=== PATIENT | female | born 1990 | race American Indian/Alaskan Native ===

== ENCOUNTER 2023-10-26 17:56 | Emergency (ER) | payer BC, OTHER ==
[~2023-10-26] VITALS: Ht 162.6 cm; Wt 72.7 kg
[2023-10-26 18:03] VITALS: TEMP 98
[2023-10-26] MEDS ORDERED: Ketorolac 60 MG/2 ML VIAL IM ONE (18:30)
[2023-10-26] MEDS ORDERED: oxyCODONE/Acetaminophen 5-325 MG TAB PO ONE (18:30)
[2023-10-26] MEDS ORDERED: NS 1,000 ML IV ONE (19:15)
[2023-10-26 19:17] LABS: BASO % 0.5 % (0.0-2.0); EOS # 0.1 K/mm3 (0.0-0.7); EOS % 1.7 % (0.0-4.0); GRAN # 2.2 K/mm3 (1.4-6.5); HEMATOCRIT 39.1 % (37.0-47.0); HEMOGLOBIN 13.6 g/dl (12.5-16.0); LYMPH # 1.4 K/mm3 (1.2-3.4); LYMPH % 33.7 % (20.0-51.0); MEAN CELL VOLUME 88 fl (80.0-100.0); MEAN CORPUSCULAR HEMOGLOBIN 31 pg (27-31); MEAN CORPUSCULAR HGB CONC 35 g/dl (33.0-37.0); MEAN PLATELET VOLUME 10.5 fl (7.4-10.4); MONO # 0.4 K/mm3 (0.1-0.6); MONO % 8.9 % (1.7-9.3); PLATELET COUNT 206 K/mm3 (130-400); RED BLOOD COUNT 4.46 M/mm3 (4.10-5.30)
[2023-10-26 19:22] LABS: COLLECTION METHOD CLEAN CATCH
[2023-10-26 19:39] LABS: PH 8.5 (5.0-8.5); SQUAMOUS EPITHELIAL 0-2 /hpf (0-10); URINE APPEARANCE Clear (CLEAR/HAZY); URINE BLOOD Negative (NEGATIVE); URINE COLOR Yellow (YELLOW); URINE GLUCOSE Negative (NEGATIVE); URINE KETONE Negative (NEGATIVE); URINE NITRATE Negative (NEGATIVE); URINE PROTEIN(semi-quant) Negative (NEGATIVE); URINE RBC None Seen /hpf (0-2); URINE UROBILINOGEN 0.2 E.U/dL (0.2-1.0)
[2023-10-26 19:55] LABS: ALBUMIN 3.9 gm/dL (3.5-5.0); BILIRUBIN,TOTAL 0.3 mg/dL (0.2-1.2); CREATININE, serum 0.8 mg/dL (0.57-1.11); POTASSIUM 4.2 mmol/L (3.5-4.5); TOTAL PROTEIN 6.9 gm/dL (6.2-8.1)
[2023-10-26 20:16] VITALS: BP 105/64; PULSE 73
== END 2023-10-26 20:16 | disposition home or self-care (01) ==
LOC: COL.ER 17:56
PROVIDERS: Nurse Practitioner
DX: M79.605 Pain in left leg (principal)
CPT/HCPCS: J1885; J7030